=== PATIENT | female | born 1990 | race Caucasian/White ===

== ENCOUNTER 2024-01-31 06:15 | Day surgery (SDC) | payer OTHER, SELFPAY ==
[2024-01-20 08:48] LABS: Hematocrit 35.6 % (37.0-47.0); Hemoglobin 12.8 g/dL (12.0-16.0); Mean Corpuscular Hgb 29.4 pg (27.0-31.0); Mean Corpuscular Volume 81.7 fL (81.0-99.0); Mean Platelet Volume 8.9 fL (7.4-10.4); Platelet Count 387 10^3/uL (130-400); Red Blood Cell Count 4.36 10^6/uL (4.20-5.40); White Blood Cell Count 5.9 10^3/uL (4.8-10.8)
[2024-01-20 08:52] LABS: HCG, Urine Qualitative Screen Negative
[2024-01-20 13:38] VITALS: BMI 24.7
[2024-01-31] VITALS (9 sets, daily range): BP systolic 111–143; BP diastolic 65–96; BMI 24.7
[2024-01-31] MEDS: NORMOSOL-R 1000 IV (07:00)
[2024-01-31] MEDS: AUGMENTIN 875 MG/125 MG 1 TABLET PO (10:35)
[2024-01-31] MEDS: ROXICODONE 5 MG PO (10:48)
== END 2024-01-31 11:38 | disposition home or self-care (01) ==
LOC: SDS 06:15
PROVIDERS: ATTENDING PHYSICIAN Otolaryngology; FAMILY PHYSICIAN Family Medicine
DX: J32.9 Chronic sinusitis, unspecified (principal); J34.2 Deviated nasal septum; J34.3 Hypertrophy of nasal turbinates
CPT/HCPCS: 31255; 30140; 30520; 31267; 88304; 88311; 36415; 81025; 85027; 87070; 87205

== ENCOUNTER → 2024-07-04 09:31 | Outpatient (REF) | payer OTHER, SELFPAY | LOC: RAD 09:31 | PROVIDERS: ATTENDING PHYSICIAN Family Medicine | DX: R05.9 Cough, unspecified (principal); R06.89 Other abnormalities of breathing; J45.901 Unspecified asthma with (acute) exacerbation | CPT/HCPCS: 71046 ==

== ENCOUNTER → 2024-07-14 09:10 | Outpatient (REF) | payer OTHER, SELFPAY | LOC: RAD 09:10 | PROVIDERS: ATTENDING PHYSICIAN Family Medicine | DX: J18.9 Pneumonia, unspecified organism (principal) | CPT/HCPCS: 71046 ==

== ENCOUNTER → 2025-01-19 08:39 | Outpatient (REF) | payer BC, SELFPAY | LOC: RAD 08:39 | PROVIDERS: ATTENDING PHYSICIAN Family Medicine | DX: M25.512 Pain in left shoulder (principal); M54.2 Cervicalgia; M25.531 Pain in right wrist; M54.50 Low back pain, unspecified; Z82.61 Family history of arthritis; M79.641 Pain in right hand | CPT/HCPCS: 72052; 73030; 73110; 73130 ==